=== PATIENT | female | born 1945 | race Caucasian/White ===

== ENCOUNTER → 2020-02-29 | Outpatient (CLI) | payer MEDICARE, OTHER ==
[~2020-02-29] MED LIST: ATOR1TAB19 PO; ECOT81TA5 PO; FISH1000 PO; INSUHUMDS; MAGN1CAP PO; MULTCAP PO; ROPI1TAB3
== END ==
LOC: M LABSMTC 12:12
PROVIDERS: ATTEND Anesthesiology
DX: Z01.812 Encounter for preprocedural laboratory examination (principal)
CPT/HCPCS: C9803; U0003

== ENCOUNTER 2020-03-05 06:52 | Day surgery (SDC) | payer MEDICARE, OTHER ==
[~2020-03-05] VITALS: Ht 157.5 cm; Wt 47.6 kg
[~2020-03-05 06:52] MED LIST changes: +NS 1,000 ML IV ONE
[2020-03-05] MEDS ORDERED: LIDOCAINE 2% 100MG/5ML SDV (FOR ANES.) As Ordered ONE (07:50)
[2020-03-05] MEDS ORDERED: propofoL 200 MG/20 ML VIAL As Ordered ONE (08:22)
[2020-03-05 09:09] VITALS: BP 135/68
--- NOTE | 2020-03-12 11:31 | ROOR ---
Patient Name: Prachi Jesus Procedure Date: 03/05/2020 7:30 AM Date of : 1945 Age: 74 Room: [facility] Gender: Female Note Status: Finalized Procedure: Total Colonoscopy to Cecum Indications: Screening in patient at increased risk: Family history of 1st-degree relative with colorectal cancer Providers: Herber Sutherland MD Referring MD: DEBBY VALENZUELA JR, MD Requesting Provider: Medicines: Monitored Anesthesia Care Complications: No immediate complications. Procedure: Pre-Anesthesia Assessment: - The heart rate, respiratory rate, oxygen saturations, blood pressure, adequacy of pulmonary ventilation, and response to care were monitored throughout the procedure. The Colonoscope was introduced through the anus and advanced to the cecum, identified by appendiceal orifice and ileocecal valve. The colonoscopy was performed without difficulty. The patient tolerated the procedure well. The quality of the bowel preparation was excellent. Findings: The perianal and digital rectal examinations were normal. Non-bleeding internal hemorrhoids were found during retroflexion. The hemorrhoids were small and Grade I (internal hemorrhoids that do not prolapse). Scattered small-mouthed diverticula were found in the recto-sigmoid colon, sigmoid colon and descending colon. The exam was otherwise without abnormality on direct and retroflexion views. Impression: - Non-bleeding internal hemorrhoids. - Diverticulosis in the recto-sigmoid colon, in the sigmoid colon and in the descending colon. - The examination was otherwise normal on direct and retroflexion views. - No specimens collected. - The exam was otherwise normal to the cecum. Recommendation: - Patient has a contact number available for emergencies. The signs and symptoms of potential delayed complications were discussed with the patient. Return to normal activities tomorrow. Written discharge instructions were provided to the patient. - High fiber diet. - Discharge patient to home. - Continue present medications. - Repeat colonoscopy is not recommended due to current age (66 years or older) for screening purposes. - Return to referring physician. - The findings and recommendations were discussed with the patient. Herber Sutherland MD Herber Sutherland MD 03/05/2020 8:41:54 AM Number of Addenda: 0 Note Initiated On: 03/05/2020 7:30 AM Estimated Blood Loss: Estimated blood loss: none.
== END 2020-03-05 08:50 | disposition home or self-care (01) ==
LOC: M OPP 06:52
PROVIDERS: ATTEND Internal Medicine Gastroenterology
DX: Z12.11 Encounter for screening for malignant neoplasm of colon (principal); Z80.0 Family history of malignant neoplasm of digestive organs; K64.0 First degree hemorrhoids; K57.30 Diverticulosis of large intestine without perforation or abscess without bleeding; Z79.4 Long term (current) use of insulin; Z79.82 Long term (current) use of aspirin; Z79.899 Other long term (current) drug therapy; Z91.041 Radiographic dye allergy status

== ENCOUNTER → 2020-12-17 | Outpatient (REF) | payer MEDICARE, OTHER ==
[~2020-12-17] MED LIST changes: -NS 1,000 ML IV ONE
== END ==
LOC: M LAB REF 16:12
PROVIDERS: ATTEND Nurse Practitioner Adult Health
DX: E10.9 Type 1 diabetes mellitus without complications (principal); K86.9 Disease of pancreas, unspecified; W57.XXXA Bitten or stung by nonvenomous insect and other nonvenomous arthropods, initial encounter; Y92.89 Other specified places as the place of occurrence of the external cause; Y99.9 Unspecified external cause status

== ENCOUNTER → 2021-06-15 | Outpatient (CLI) | payer MEDICARE, OTHER ==
--- NOTE | 2021-06-15 16:43 | REPVR ---
PROCEDURE INFORMATION: Exam: MR Lumbar Spine Without Contrast Exam date and time: 06/15/2021 8:43 AM Age: 75 years old Clinical indication: Low back pain; Additional info: Hepatic failure, unspecified without coma TECHNIQUE: Imaging protocol: Multiplanar magnetic resonance images of the lumbar spine without intravenous contrast. COMPARISON: MRI-Spine, L.S. without con 10/03/2014 2:23 PM FINDINGS: Vertebrae: There is a pronounced lumbar dextroscoliotic curvature. There is 2 mm of grade 1 retrolisthesis of L1 with respect to L2 and L2 with respect to L3. Normal vertebral body alignment is otherwise preserved. Vertebral body heights are within normal limits. There is severe intervertebral disc space loss at L1/2 and L2/3. Diffuse heterogeneity of marrow likely reflects marrow conversion. There is a small hemangioma at T12. Spinal cord: Normal signal. No cord compression. L1-L2: There is disc bulging/uncovering related to listhesis. There is moderate facet hypertrophy. There is mild left neural foraminal narrowing. L2-L3: There is disc bulging/uncovering related to listhesis. There is [id number] facet hypertrophy. The spinal canal and neural foramina are patent. L3-L4: There is diffuse disc bulging. There is moderate facet hypertrophy. There is mild bilateral neural foraminal narrowing. L4-L5: There is diffuse disc bulging. There is moderate facet hypertrophy. There is mild to moderate right neural foraminal narrowing. Disc material comes into close contact with the exiting right L4 nerve root. L5-S1: There is diffuse disc bulging. There is [id number] facet hypertrophy. There is mild right neural foraminal narrowing. Soft tissues: Unremarkable. IMPRESSION: Degenerative disc disease and spondylosis in a background of dextroscoliosis. At L4/5, disc material comes into close contact with the exiting right L4 nerve root. Electronically signed by: Brianna Melton On 06/15/2021 16:42:35 PM
== END ==
LOC: M PLAIMG 06-04 08:40
PROVIDERS: ATTEND Pain Medicine Interventional Pain Medicine
DX: M47.817 Spondylosis without myelopathy or radiculopathy, lumbosacral region (principal); M47.816 Spondylosis without myelopathy or radiculopathy, lumbar region; M51.36 Other intervertebral disc degeneration, lumbar region; M51.27 Other intervertebral disc displacement, lumbosacral region

== ENCOUNTER → 2022-04-08 | Outpatient (CLI) | payer MEDICARE, OTHER | LOC: M SOG 08:30 | PROVIDERS: ATTEND Orthopaedic Surgery Hand Surgery | DX: M19.042 Primary osteoarthritis, left hand (principal) ==

== ENCOUNTER → 2022-11-30 | Outpatient (REF) | payer MEDICARE, OTHER | LOC: M LAB REF 12:24 | PROVIDERS: ATTEND Nurse Practitioner Family | DX: R06.02 Shortness of breath (principal) ==

== ENCOUNTER → 2025-03-12 | Outpatient (REF) | payer MEDICARE, OTHER ==
[~2025-03-12] MED LIST changes: -ROPI1TAB3; +ROPI1TAB73
== END ==
LOC: M LAB REF 17:57
PROVIDERS: ATTEND Internal Medicine
DX: Z79.899 Other long term (current) drug therapy (principal); R53.83 Other fatigue

== ENCOUNTER 2025-05-13 06:58 | Day surgery (SDC) | payer MEDICARE, OTHER ==
[~2025-05-13] VITALS: Ht 154.9 cm; Wt 47.7 kg
[~2025-05-13 06:58] MED LIST changes: +ATOR1TAB21 PO; +HYDR25SU61 PR; +INSU100V6; +LISI2.5T9 PO; +MELO7.5T35 PO; +MULTTAB61 PO; +RA M500C PO; +TIZA2TA PO; +TOUJ1.2I
[2025-05-13] MEDS ORDERED: LIDOCAINE 2% 100 MG/5 ML SDV (FOR ANES.) As Ordered ONE (07:58)
[2025-05-13 08:25] VITALS: TEMP 97.2
[2025-05-13 08:44] VITALS: BP 114/58; O2SAT 100
== END 2025-05-13 09:09 | disposition home or self-care (01) ==
LOC: M OPP 06:58
PROVIDERS: ATTEND Internal Medicine Gastroenterology
DX: Z12.11 Encounter for screening for malignant neoplasm of colon (principal); K64.0 First degree hemorrhoids; K57.30 Diverticulosis of large intestine without perforation or abscess without bleeding; E10.9 Type 1 diabetes mellitus without complications; Z79.4 Long term (current) use of insulin; Z91.041 Radiographic dye allergy status; Z79.82 Long term (current) use of aspirin; Z79.899 Other long term (current) drug therapy